=== PATIENT | female | born 1970 | race Caucasian/White ===

== ENCOUNTER 2016-08-16 18:03 | Emergency (ER) | payer OTHER ==
[~2016-08-16] VITALS: Ht 167.6 cm; Wt 100.0 kg
[2016-08-16 21:04] VITALS: BP 140/78
[2016-08-16] MEDS ORDERED: HydrOXYzine PAMOATE 50 MG CAPSULE PO ONE (21:15)
== END 2016-08-16 21:23 | disposition home or self-care (01) ==
LOC: EMS 18:04
DX: F41.0 Panic disorder [episodic paroxysmal anxiety] (principal); R22.1 Localized swelling, mass and lump, neck; Z88.0 Allergy status to penicillin
CPT/HCPCS: 99283

== ENCOUNTER 2021-05-01 09:00 | Emergency (ER) | payer OTHER ==
[~2021-05-01] VITALS: Ht 157.5 cm; Wt 84.1 kg
[2021-05-01] MEDS ORDERED: METHOCARBAMOL 500 MG TABLET PO ONE (10:15)
[2021-05-01] MEDS ORDERED: IBUPROFEN 600 MG TABLET PO ONE (10:15)
[2021-05-01 11:00] VITALS: BP 120/61
== END 2021-05-01 11:59 | disposition home or self-care (01) ==
LOC: EMS 09:00
DX: M20.091 Other deformity of right finger(s) (principal); E03.9 Hypothyroidism, unspecified
CPT/HCPCS: 99283